=== PATIENT | male | born 2000 | race Caucasian/White ===

== ENCOUNTER 2020-08-07 22:06 | Emergency (ER) | payer SELFPAY ==
[~2020-08-07] VITALS: Ht 167.6 cm; Wt 77.1 kg
== END 2020-08-08 01:00 | disposition home or self-care (01) ==
LOC: ER 22:38
DX: R07.9 Chest pain, unspecified (principal); M89.8X8 Other specified disorders of bone, other site
CPT/HCPCS: 71045; 93005; 99282